=== PATIENT | male | born 1955 | race African-American/Black ===

== ENCOUNTER 2016-10-09 22:37 | Emergency (ER) | payer OTHER ==
--- NOTE | 2016-10-09 22:40 | PDOC ---
History of Present Illness - General Chief Complaint: Hematuria Stated Complaint: HEMATURIA LEFT FLANK PAIN Time Seen by Provider: 10/09/16 22:38 - History of Present Illness Initial Comments: This 60-year-old man with a history of HTN and BPH presents with a one-day history of left lower quadrant/left flank discomfort and hematuria. Patient first felt discomfort when he awakened this morning, starting in lower abdomen and radiating to left flank; he subsequently noted a small amount of blood when he urinated(few drops stained underwear). He has not had dysuria/urinary frequency/urinary urgency. No previous history of UTI or renal stones. Patient denies nausea/vomiting. He has not had any fever or chills. No history of diverticular disease; he has been somewhat more constipated in recent days Past History - Past Medical History Allergies/Adverse Reactions: Allergies Allergy/AdvReac Type Severity Reaction Status Date / Time chloroquine Allergy Verified 10/09/16 22:44 Home Medications: Ambulatory Orders Losartan Potassium 25 mg PO DAILY 10/09/16 Tamsulosin HCl [Flomax] 0.4 mg PO DAILY 10/09/16 Ciprofloxacin [Cipro (Restricted To Id)] 250 mg PO BID #10 tablet 10/10/16 Review of Systems - Review of Systems Able to Perform ROS?: Yes Comments:: 12 point review of systems is negative except for what is noted in the history of present illness *Physical Exam - Physical Exam Comments: GENERAL: Adult male awake, alert, and fully oriented, in no acute distress. Vital signs as noted. HEAD: Normal with no signs of trauma. EYES: Pupils equal, round and reactive to light, extraocular movements intact, sclera anicteric, conjunctiva clear with no pallor. ENT: moist mucous membranes. Ears normal, nares patent, oropharynx clear without exudates. NECK: Normal range of motion, supple without lymphadenopathy, JVD, or masses. LUNGS: Breath sounds equal, clear to auscultation bilaterally. No wheeze/ crackles. HEART: Regular rate and rhythm, normal S1 and S2 without murmur or rub. ABDOMEN: Soft/nondistended. BS wnl. Mild left lower quadrant/left flank tenderness. No guarding or rebound. No palpable masses. No hepatosplenomegaly. EXTREMITIES: Normal range of motion, no edema. No clubbing or cyanosis. No cords, erythema, or tenderness. NEUROLOGICAL: Cranial nerves II through XII grossly intact. Normal speech, normal gait. PSYCH: Normal mood, normal affect. SKIN: Warm, Dry, normal turgor, no rashes or lesions noted. ED Treatment Course - LABORATORY CBC & Chemistry Diagram: 10/09/16 23:02 10/09/16 23:02 Progress Note - Progress Note Progress Note: Because of the patient's history of hematuria and left-sided flank/lower quadrant pain plus tenderness, renal stone protocol CT of abdomen and pelvis performed to evaluate for acute pathology. Prior to this, CBC/chemistry profile/urinalysis was sent. Patient received 1 L normal saline IV as well as Toradol 30 mg IV for analgesia Patient had significant relief in his pain after Toradol 30 mg IV and normal saline IV hydration. Although wbc and hemoglobin normal, CBC notable for differential of elevated monocytes/eosinophils Chemistry profile was essentially normal. Urinalysis showed 1020 RBCs/24 WBCs/few epi cells/rare bacteria. Urine culture and sensitivity sent Renal stone protocol abdominal/pelvic CT revealed no evidence of ureteral or hydronephrosis, retained stones, perinephric abscess or other acute process. There was a moderate amount of colonic retained stool but no other acute abnormalities otherwise. Results discussed with the patient and his . Patient will be started on Cipro 250 mg twice a day for 5 days pending culture and sensitivity results. Meanwhile, the patient should continue his medications as prescribed and follow- up with his urologist within the next few days. Also, because his blood pressure was moderately elevated during his stay in the ER, he should follow-up with his general medical doctor within the next few days to recheck blood pressure and review laboratory evaluation. *DC/Admit/Observation/Transfer Diagnosis at time of Disposition: Hematuria, Flank pain - Discharge Dispostion Disposition: HOME Condition at time of disposition: Stable - Prescriptions Prescriptions: Ciprofloxacin [Cipro (Restricted To Id)] 250 mg PO BID #10 tablet - Referrals Referrals: Emely Becerra MD [Primary Care Provider] - 3 days - Patient Instructions Printed Discharge Instructions: DI for Hematuria, DI for Flank Pain Additional Instructions: Drink plenty of water Cipro 250 mg twice a day for 5 days Continue other medications as prescribed laxative/ cathartic as needed for constipation Return to ER if you have severe pain/vomiting/fever Follow-up with your urologist within the next 3-4 days Follow-up with your general medical doctor within the next 5 days for blood pressure check
[2016-10-09 22:52] LABS: PH,URINE 5.5 (4.5-8); URINE APPEARANCE Clear; URINE BILIRUBIN Negative (NEGATIVE); URINE GLUCOSE (UA) Trace (NEGATIVE); URINE KETONE Negative (NEGATIVE); URINE LEUK ESTERASE Negative (NEGATIVE); URINE NITRITE Negative (NEGATIVE); URINE PROTEIN Negative (NEGATIVE); URINE UROBILINOGEN 0.2 E.U/dl (0.2-1.0)
[2016-10-09 22:53] VITALS: TEMP 98.8; BMI 28.8
[2016-10-09 22:53] LABS: URINE BLOOD 2 (NEGATIVE); URINE COLOR YELLOW
[2016-10-09] MEDS ORDERED: SODIUM CHLORIDE 1,000 ML IV STA (23:01)
[2016-10-09 23:05] LABS: URINE BACTERIA RARE /hpf (NEGATIVE)
[2016-10-09] MEDS ORDERED: KETOROLAC TROMETHAMINE 30 MG/1 ML VIAL ONE (23:08)
[2016-10-09] MEDS ORDERED: KETOROLAC TROMETHAMINE 30 MG/1 ML VIAL IVPUSH ONE (23:11)
[2016-10-09 23:13] LABS: BASOPHIL 1.2 % (0-2.0); EOSINOPHIL 9.7 % (0-4.5); MCH 29.1 pg (25.7-33.7); MCHC 33.3 g/dl (32.0-35.9); MEAN CELL VOLUME 87.4 fl (80-96); NEUTROPHILS 35.1 % (42.8-82.8); PLATELET COUNT 184 K/MM3 (134-434); RDW 13.4 % (11.9-15.9); WHITE BLOOD COUNT 5.1 K/mm3 (4.0-10.8)
[2016-10-09 23:35] LABS: ALBUMIN 4.2 g/dl (3.5-5.0); ALK PHOS 60 U/L (32-92); ANION GAP 6 (8-16); BILIRUBIN,TOTAL 0.7 mg/dl (0.2-1.0); CALCIUM 9.5 mg/dl (8.4-10.2); CO2 23 mmol/L (22-28); COCKROFT - GAULT 93.65; CREATININE 1.1 mg/dl (0.6-1.3); GLUCOSE,RANDOM 104 mg/dl (74-106); SGOT/AST 19 U/L (10-42); SGPT/ALT 17 U/L (10-40)
[2016-10-09 23:44] VITALS: BP 146/106; PULSE 95
[2016-10-10] MEDS ORDERED: CIPROFLOXACIN 250 MG TABLET (RESTRICTED TO ID) PO ONE ×2 (00:31→00:33)
== END 2016-10-10 00:41 | disposition home or self-care (01) ==
LOC: FER 22:37
PROC: 3E0333Z Introduction of Anti-inflammatory into Peripheral Vein, Percutaneous Approach (ICD-10-PCS; principal; 2016-10-09)
PROC: 3E0337Z Introduction of Electrolytic and Water Balance Substance into Peripheral Vein, Percutaneous Approach (ICD-10-PCS; 2016-10-09)
DX: R31.9 Hematuria, unspecified (principal); R10.32 Left lower quadrant pain; I10 Essential (primary) hypertension; N40.0 Benign prostatic hyperplasia without lower urinary tract symptoms
CPT/HCPCS: 36415; 74176; 80053; 81003; 81015; 85025; 87086; 99281-25